=== PATIENT | male | born 1990 | race African-American/Black ===

== ENCOUNTER 2018-01-02 08:45 | Emergency (ER) | payer SELFPAY, OTHER | END 2018-01-02 10:36 | disposition home or self-care (01) | LOC: ERS 08:45 | DX: L84 Corns and callosities (principal); J45.909 Unspecified asthma, uncomplicated; F17.210 Nicotine dependence, cigarettes, uncomplicated | CPT/HCPCS: 99283 ==

== ENCOUNTER 2019-01-08 04:36 | Emergency (ER) | payer SELFPAY | END 2019-01-08 05:25 | disposition home or self-care (01) | LOC: ERS 04:36 | DX: G62.9 Polyneuropathy, unspecified (principal); J45.909 Unspecified asthma, uncomplicated; F17.210 Nicotine dependence, cigarettes, uncomplicated ==

== ENCOUNTER 2019-09-09 07:08 | Emergency (ER) | payer SELFPAY | END 2019-09-09 07:24 | disposition home or self-care (01) | LOC: ERS 07:08 | DX: L03.115 Cellulitis of right lower limb (principal); J45.909 Unspecified asthma, uncomplicated | CPT/HCPCS: 99283 ==

== ENCOUNTER 2020-03-26 20:05 | Emergency (ER) | payer SELFPAY ==
[2020-03-26] MEDS ORDERED: Acetaminophen 500 MG TAB ONE (20:59)
[2020-03-26] MEDS ORDERED: diphenhydrAMINE 50 MG/ML VIAL ONE (21:00)
[2020-03-26] MEDS ORDERED: Metoclopramide HCl 10 MG/2 ML VIAL ONE (21:00)
== END 2020-03-26 22:23 | disposition home or self-care (01) ==
LOC: ERS 20:05
DX: R51 Headache (principal); J45.909 Unspecified asthma, uncomplicated
CPT/HCPCS: 96365; 96375; J1200; J2765

== ENCOUNTER 2020-03-30 16:18 | Emergency (ER) | payer OTHER, SELFPAY ==
[2020-03-31 15:29] LABS: SARS-CoV-2 MS2 Positive; SARS-CoV-2 N Gene Negative; SARS-CoV-2 S Gene Negative; SARS-CoV-2 orf1ab Negative
== END 2020-03-30 16:50 | disposition home or self-care (01) ==
LOC: ERS 16:18
DX: Z20.828 Contact with and (suspected) exposure to other viral communicable diseases (principal); J45.909 Unspecified asthma, uncomplicated
CPT/HCPCS: 87635; 99283; U0003

== ENCOUNTER 2020-04-09 10:59 | Emergency (ER) | payer SELFPAY | END 2020-04-09 12:13 | disposition home or self-care (01) | LOC: ERS 10:59 | DX: K02.9 Dental caries, unspecified (principal); I10 Essential (primary) hypertension; J45.909 Unspecified asthma, uncomplicated | CPT/HCPCS: 99281 ==

== ENCOUNTER 2020-12-23 20:40 | Emergency (ER) | payer BC, SELFPAY ==
[2020-12-23] MEDS ORDERED: Ketorolac Tromethamine 30 MG/ML VIAL ONE (22:39)
== END 2020-12-23 23:03 | disposition home or self-care (01) ==
LOC: ERS 20:40
DX: S39.012A Strain of muscle, fascia and tendon of lower back, initial encounter (principal); S29.012A Strain of muscle and tendon of back wall of thorax, initial encounter; X50.0XXA Overexertion from strenuous movement or load, initial encounter
CPT/HCPCS: 96372; 99283; J1885

== ENCOUNTER 2021-01-26 13:10 | Emergency (ER) | payer OTHER, BC ==
[2021-01-26] MEDS ORDERED: Ibuprofen 200 MG TAB ONE (14:31)
== END 2021-01-26 17:26 | disposition home or self-care (01) ==
LOC: ERS 13:10
DX: S20.211A Contusion of right front wall of thorax, initial encounter (principal); V89.2XXA Person injured in unspecified motor-vehicle accident, traffic, initial encounter
CPT/HCPCS: 71046